=== PATIENT | male | born 1980 | race Caucasian/White ===

== ENCOUNTER 2019-02-18 08:21 | Emergency (ER) | payer OTHER ==
[2019-02-18] MEDS ORDERED: NS 0.9% 1000 ML** 1,000 ML IV ONE ×2 (08:33→12:52)
--- NOTE | 2019-02-18 08:48 | ED ---
Abdominal Pain/Male - HPI Summary HPI Summary: 38 year old M presenting to [facility] accompanied by two correction facility officers with a chief complaint of constant abdominal pain described as cramping , radiating to bilateral flanks, since 2-3 weeks ago. The patient rates the pain 7/10 in severity. Symptoms aggravated by nothing. Symptoms alleviated by Tylenol - last dose 1 week ago. Patient reports abdominal bloating, diarrhea, nausea, recent weight loss. He reports hot flashes and headaches. He denies vomiting, black or bloody stools, decreased appetite, and fever. Patient has treated the pain with Tylenol with relief. He last took Tylenol 1.5 weeks ago. His last bowel movement was 03:30 today. Patient hasn't eaten today yet. Patient has hx ulcerative colitis but hasn't taken medications since being incarcerated for the last year. He used to take a medication, ? 600 mg Cipro which helped. He additionally complains of spider bite on his right arm described as burning since 4-5 days ago. He noticed a line going up his right arm 2 days ago. He states that the bite was bleeding and had white pus coming out so he washed it and put bandaids on. Patient has been incarcerated for the last year and will be released on 02/24/19. tdap UTD. Not immunocompromised. No h /o injection. Patients medication reviewed this visit. - History of Current Complaint Chief Complaint: EDNadiain Stated Complaint: ABD PAIN, SPIDER BITE ON RIGHT ARM Time Seen by Provider: 02/18/19 08:30 Hx Obtained From: Patient Onset/Duration: Lasting Weeks - 2, Still Present Timing: Constant Severity Currently: Moderate Pain Intensity: 7 Pain Scale Used: 0-10 Numeric Radiates: Yes Radiates to: Flank - bilateral Character: Cramping Aggravating Factor(s): Nothing Alleviating Factor(s): Nothing Associated Signs And Symptoms: Positive: Negative - vomiting, black stools, decreased appetite, and fever, Other - abdominal bloating, diarrhea, nausea, recent weight loss, spider bite on his right arm - Allergies/Home Medications Allergies/Adverse Reactions: Allergies Allergy/AdvReac Type Severity Reaction Status Date / Time azithromycin Allergy Hives Verified 02/18/19 08:27 [From Zithromax Z-Hakan] Home Medications: Home Medications Bismuth Subsalicylate [Pepto-Bismol] 262 mg PO Q6HR PRN 02/18/19 [History Confirmed 02/18/19] LoraTADine TAB(NF) [Claritin 10 MG TAB(NF)] 10 mg PO DAILY 02/18/19 [History Confirmed 02/18/19] PMH/Surg Hx/FS Hx/Imm Hx Previously Healthy: No Endocrine/Hematology History: Denies: Hx Diabetes Cardiovascular History: Denies: Hx Hypertension GI History: Reports: Other GI Disorders - Hx ulcerative cholitis Neurological History: Denies: Hx Seizures Psychiatric History: Reports: Hx Schizophrenia, Hx Bipolar Disorder - Surgical History Surgery Procedure, Year, and Place: denies Infectious Disease History: No Infectious Disease History: Denies: Traveled Outside the [place] in Last 30 Days - Family History Known Family History: Negative: Blood Disorder - Social History 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 Negative: Fever Gastrointestinal: Negative - black stools, decreased appetite Positive: Abdominal Pain, Diarrhea, Nausea, Other - abdominal bloating, recent weight loss. Negative: Vomiting Positive: Other - spider bite on his right arm Positive: Headache All Other Systems Reviewed And Are Negative: Yes Physical Exam - Summary Physical Exam Summary: Vital Signs Reviewed: Yes A+Ox3, no distress, appropriate Eyes: Conjunctiva Clear, CHIRAG. 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 Skin: Positive: no rash, no ecchymosis, right forearm - pt with 2x1cm erythema with central scab and 2cm red streak extension Triage Information Reviewed: Yes Vital Signs On Initial Exam: Initial Vitals Temp Pulse Resp BP Pulse Ox 97.2 F 95 19 118/82 97 02/18/19 08:25 02/18/19 08:25 02/18/19 08:25 02/18/19 08:25 02/18/19 08:25 Vital Signs Reviewed: Yes Diagnostics - Vital Signs Vital Signs Temp Pulse Resp BP Pulse Ox 02/18/19 08:25 97.2 F 95 19 118/82 97 - Laboratory Result Diagrams: 02/18/19 08:40 02/18/19 08:40 Lab Statement: Any lab studies that have been ordered have been reviewed, and results considered in the medical decision making process. - CT Abdomen/Pelvis CT Interpretation Completed By: Radiologist Summary of CT Findings: 1. The constellation of contiguous inflammatory change at the distal ileum and colon through the transverse colon with suggestion of transmural inflammatory change is highly suspicious for Crohn's disease. Contiguous involvement with the appendix as described. Evidence for bowel perforation at the proximal transverse colon with associated few foci of free air as well as extensive inflammatory change with microabscesses without visualized drainable abscess collection. Negative for resulting bowel obstruction. ED physician has reviewed this report. Re-Evaluation - Re-Evaluation First Eval Re-Evaluation Time: 10:00 Comment: pt drank contrat. no nausea. awaiting CT. labs reviewed - elevated wbc - no dif. elecated SEd rate Second Eval Re-Evaluation Time: 12:42 Comment: patient informed of transfer plan- will give zosyn/flagyl. awaiting for call from transfer center. 2L NS Third Eval Re-Evaluation Time: 12:53 Comment: spoke with Transfer Center who will see if there is an available bed and get back to us Fourth Eval Re-Evaluation Time: 12:58 Comment: Transfer Center called back with an acceptance to [facility] - Dr. Quiroga in ED accepting provider Abdominal Pain Male Course/Dx - Course Course Of Treatment: Patient presents to urgent care reporting to 3 weeks of abdominal pain. Patient states that a history of ulcerative colitis but is not on medication for the pneumonia. Patient without any abdominal surgeries. No fevers or chills. Patient with diarrhea. No blood not black. Patient also with erythema of redness on his right forearm. Patient states his noticed with strict 2-3 days ago. Patient states he squeezed and got some purulent material out of it. Minimal pain. Tetanus up-to-date. On exam vital signs are stable. Patient with mild discomfort left upper quadrant and right lower quadrant. No guarding or rebound. Patient also with area of erythema with a slight streaking on right forearm. No fluctuance. We'll check labs, CT,. We'll give Tylenol. We'll give fluids. We'll likely give patient antibiotics - will wait to see with CT of the abdomen shows pt comfortable agreement with plan. - Diagnoses Provider Diagnoses: Pancolitis - Provider Notifications Discussed Care Of Patient With: Leonel Pettit - request pt be transferred to colo-rectal surgery Time Discussed With Above Provider: 12:37 Instructed by Provider To: Transfer - Dr. Pettit, surgery, recommends transferring the patient. The patient will be transferred. Transfer initiated at 12:40. The patient will receive antibiotics. The patient will be informed of transfer plan. - Critical Care Time Critical Care Time: 30-74 min Discharge - Sign-Out/Discharge Documenting (check all that apply): Patient Departure - Transfer Patient Received Moderate/Deep Sedation with Procedure: No - Discharge Plan Condition: Good Disposition: TRANS HIGHER LVL OF CARE FAC Referrals: Teresita Noonan [Primary Care Provider] - - Billing Disposition and Condition Condition: GOOD Disposition: Trans Higher Lvl of Care Fac - Attestation Statements Document Initiated by Bill: Yes Documenting Scribe: Soledad Rosa Provider For Whom Bill is Documenting (Include Credential): Yissel Williamson MD Scribe Attestation: Soledad Heller, scribed for Yissel Williamson MD on 02/18/19 at 1337. Scribe Documentation Reviewed: Yes Provider Attestation: The documentation as recorded by the Soledad reid accurately reflects the service I personally performed and the decisions made by me, Yissel Williamson MD Status of Scribe Document: Viewed
[2019-02-18 08:51] LABS: Hematocrit 33 % (42-52); Hemoglobin 10.8 g/dL (14.0-18.0); Mean Corpuscular HGB Conc 33 g/dL (31-36); Mean Corpuscular Hemoglobin 24 pg (27-31); Mean Corpuscular Volume 74 fL (80-94); Mean Platelet Volume 6.3 fL (7.4-10.4); Platelet Count 687 10^3/uL (150-450); Red Cell Distribution Width 15 % (10-15)
[2019-02-18] MEDS ORDERED: Acetaminophen TAB* 325 MG PO ONE (09:14)
[2019-02-18 09:15] LABS: Albumin 3.4 g/dL (3.2-5.2); Albumin/Globulin Ratio 0.9 (1-3); BUN/Creatinine Ratio 12.2 (8-20); Calcium 8.8 mg/dL (8.6-10.3); EGFR African American 85.7 (>60); EGFR Non-African American 70.8 (>60); Globulin 3.7 g/dL (2-4); Potassium 4.1 mmol/L (3.5-5.0); Total Bilirubin 0.6 mg/dL (0.2-1.0); Total Protein 7.1 g/dL (6.4-8.9)
[2019-02-18 09:25] LABS: ABS Basophils 0.1 10^3/ul (0-0.2); ABS Eosinophils 0.1 10^3/ul (0-0.6); ABS Lymphocytes 1.7 10^3/ul (1.0-4.8); ABS Monocytes 1.5 10^3/ul (0-0.8); ABS Neutrophils 12.6 10^3/ul (1.5-7.7); Eosinophil % 0.4 %; Lymphocyte % 10.6 %
[2019-02-18 10:15] LABS: Erythrocyte Sed Rate 58 mm/Hr (0-14)
[2019-02-18] MEDS ORDERED: Iohexol 300* (CONTRAST) 10 ML SDV IV ONE (10:42)
[2019-02-18] MEDS ORDERED: ED Piperacillin/Tazobac 3.375 3.375 GM/100 ML PREMIX.SET IVPB ONE (12:45)
[2019-02-18] MEDS ORDERED: metroNIDAZOLE IV 500 MG/100ML* 500 MG/100 ML BAG IVPB ONE (12:45)
[2019-02-18] MEDS ORDERED: Zosyn 3.375 GM IV - ED ONCE IVPB ONE ×2 (13:00)
[2019-02-18] MEDS ORDERED: Morphine 4 MG/ML VIAL (1 ml) 4 MG/ML VIAL IV ONE (13:39)
[2019-02-18] MEDS ORDERED: NS 0.9% 1000 ML** 1,000 ML IV SCH (13:45)
[2019-02-18 14:14] VITALS: BP 106/69
== END 2019-02-18 14:14 | disposition short-term general hospital (02) ==
LOC: ED 08:21
DX: K51.00 Ulcerative (chronic) pancolitis without complications (principal); F17.210 Nicotine dependence, cigarettes, uncomplicated; Z88.1 Allergy status to other antibiotic agents; Z79.899 Other long term (current) drug therapy
CPT/HCPCS: 36415; 74177; 80053; 83605; 83690; 83735; 85025; 85652; 96361; 96365; 96375; 99285; A9270-GY; J2270; J2543; J3490; Q9967